=== PATIENT | female | born 1970 | race Caucasian/White ===

== ENCOUNTER → 2016-09-14 | Outpatient (CLI) | payer BC ==
[~2016-09-14] MED LIST: B-COTAB53 PO; CALC-214 PO; CHOL100010 PO; DULO60CA44 PO; FING1CAP PO; MESA0.37 PO; TRAM-10 PO; ZINC1CAP PO
--- NOTE | 2016-09-14 10:20 | DIAGNOSTIC IMAGING REPORT ---
MRI OF THE BRAIN WITHOUT AND WITH IV CONTRAST CLINICAL HISTORY: Normal sclerosis. COMPARISON STUDY: 11/09/2015 TECHNIQUE: MRI of the brain was performed from the vertex to the skull base utilizing various T1 and T2 weighted sequences. Following the IV administration of 6.5 mL of Gadavist contrast, additional enhanced images were obtained. FINDINGS: Sagittal T1, axial diffusion, proton density and T2 weighted axial, coronal FLAIR, and pre and post axial T1-weighted images were acquired. These were supplemented with post gadolinium coronal T1 weighted images. No intra or extra-axial mass lesions are visualized. Axial diffusion-weighted images reveal no evidence of acute or subacute infarction. There is no evidence of ventricular dilatation. Proton density T2-weighted and FLAIR images reveal multiple foci of increased T2 signal within the white matter. Several of these have an orientation perpendicular to the ependymal surface of the ventricles. The lesions remain similar in size and orientation to the preceding examination. The largest lesions are located within the left parietal periventricular white matter. This lesion measures 18 mm. There are no abnormal flow voids. There is no evidence of pathologic enhancement. There are inflammatory changes within the maxillary sinuses left greater than right. IMPRESSION: 1. Persistent foci of increased T2 and FLAIR signal within the white matter, consistent with the clinical diagnosis of multiple sclerosis. These lesions remain stable. There is no pathologic enhancement 2. No evidence of acute or subacute infarction 3. Inflammatory changes within the maxillary sinuses left greater than right Electronically signed by: Garfield Dye M.D. 09/14/2016 10:18 AM Dictated Date/Time: 09/14/2016 10:12 AM
== END | disposition home or self-care (01) ==
LOC: C.MRIBC 09:17
PROVIDERS: ATTEND Psychiatry & Neurology Neurology
DX: G35 Multiple sclerosis (principal)

== ENCOUNTER → 2016-10-05 | Outpatient (CLI) | payer BC | END | disposition home or self-care (01) | LOC: C.PAPS 09:24 | PROVIDERS: ATTEND Obstetrics & Gynecology | DX: Z87.898 Personal history of other specified conditions (principal); Z01.419 Encounter for gynecological examination (general) (routine) without abnormal findings ==

== ENCOUNTER → 2016-12-14 | Outpatient (CLI) | payer BC | END | disposition home or self-care (01) | LOC: C.PATHSPEC 17:49 | PROVIDERS: ATTEND Podiatrist Primary Podiatric Medicine | DX: B07.9 Viral wart, unspecified (principal) ==

== ENCOUNTER → 2017-07-11 | Outpatient (CLI) | payer BC ==
--- NOTE | 2017-07-11 21:04 | DIAGNOSTIC IMAGING REPORT ---
R VENOUS DOPP LOWER EXT UNILAT CLINICAL HISTORY: R LEG PAIN pain. Edema. TECHNIQUE: Venous Doppler COMPARISON STUDY: None FINDINGS: Normal study IMPRESSION: Normal study The above report was generated using voice recognition software. It may contain grammatical, syntax or spelling errors. Electronically signed by: Leonid Gomez M.D. 07/11/2017 9:03 PM Dictated Date/Time: 07/11/2017 9:02 PM
== END | disposition home or self-care (01) ==
LOC: C.ULTR 20:22
PROVIDERS: ATTEND Student in an Organized Health Care Education/Training Program
DX: M79.604 Pain in right leg (principal)

== ENCOUNTER → 2017-10-19 | Outpatient (CLI) | payer OTHER | END | disposition home or self-care (01) | LOC: C.PAPS 08:11 | PROVIDERS: ATTEND Obstetrics & Gynecology | DX: Z12.4 Encounter for screening for malignant neoplasm of cervix (principal); R87.610 Atypical squamous cells of undetermined significance on cytologic smear of cervix (ASC-US); Z11.51 Encounter for screening for human papillomavirus (HPV); Z87.898 Personal history of other specified conditions ==